=== PATIENT | male | born 1990 | race Caucasian/White ===

== ENCOUNTER 2017-07-08 10:14 | Emergency (ER) | payer OTHER ==
[~2017-07-08] VITALS: Ht 165.1 cm; Wt 54.9 kg
[~2017-07-08 10:14] MED LIST: ACETAMINOPHEN-1 EAC1 PO; FLEXERIL PO; IBUPROFEN 600600 M1 PO; IBUPROFEN 800800 MG PO; PENICILLIN VK500 MG PO; ULTRAM 50MG TAB50 MG PO; VICODIN
[2017-07-08 10:20] VITALS: BP 121/63
[2017-07-08] MEDS ORDERED: NOHOMEMEDICATIONS (10:24)
[2017-07-08] MEDS ORDERED: IBUPROFEN 800800 M1 PO (10:37)
[2017-07-08] MEDS ORDERED: AUGMENTIN 500-1 EACH PO (10:37)
== END 2017-07-08 10:50 | disposition home or self-care (01) ==
LOC: M.ERS 10:14
DX: K04.7 Periapical abscess without sinus (principal); F17.210 Nicotine dependence, cigarettes, uncomplicated; Z88.6 Allergy status to analgesic agent

== ENCOUNTER 2020-04-26 12:12 | Emergency (ER) | payer MEDICAID ==
[~2020-04-26] VITALS: Ht 165.1 cm; Wt 56.7 kg
[~2020-04-26 12:12] MED LIST changes: +AUGMENTIN 500-1 EACH PO; +IBUPROFEN 800800 M1 PO; +NOHOMEMEDICATIONS
[2020-04-26 13:17] VITALS: BP 108/55
== END 2020-04-26 13:18 | disposition home or self-care (01) ==
LOC: M.ERS 12:12
DX: S60.416A Abrasion of right little finger, initial encounter (principal); S60.412A Abrasion of right middle finger, initial encounter; S60.414A Abrasion of right ring finger, initial encounter; F17.210 Nicotine dependence, cigarettes, uncomplicated; Z88.6 Allergy status to analgesic agent; W26.8XXA Contact with other sharp object(s), not elsewhere classified, initial encounter; Y93.89 Activity, other specified; Y92.89 Other specified places as the place of occurrence of the external cause; Y99.8 Other external cause status